=== PATIENT | female | born 1980 | race Caucasian/White ===

== ENCOUNTER 2016-12-05 07:10 | Inpatient (IN) | payer BC ==
--- NOTE | 2016-12-04 17:42 | HP ---
TOI GARLAND DATE OF SCHEDULED SURGERY: December 05, 2016 PREOPERATIVE DIAGNOSES: Menorrhagia with uterine fibroid. PROCEDURE PLANNED: A total abdominal hysterectomy. HISTORY: The patient is a 36-year-old 2, para 2, woman with a last menstrual period of November 17, 2016. She has had up to a year of very heavy periods with lots of pain and passing clots. She states this is worse for the first three days of her cycle, but she has a great deal of pain and she is unable to do much during those three days because of the heavy bleeding. During the workup we got an ultrasound which shows a 2.5 cm uterine fibroid in the posterior fundus. It looks intramural and may be submucosal as well. Otherwise normal ultrasound. Patient continues to have pain and the very heavy periods. She states her mother and sister both had a hysterectomy in their early 30s because of very similar bleeding. We have discussed putting a Mirena in, but she strongly wants a total abdominal hysterectomy. She wants to be done with the bleeding. PAST MEDICAL HISTORY: She denies major medical problems. PAST SURGICAL HISTORY: She has had a cholecystectomy. ALLERGIES: 1. PENICILLIN CAUSING A RASH. 2. SULFA CAUSING A RASH. MEDICATIONS: Advil as needed. FAMILY HISTORY: Positive for a father who had a myocardial infarction at age 39. SOCIAL HISTORY: Patient is Thai speaking. She lives with her and two children. She does not smoke, does not use alcohol. REVIEW OF SYSTEMS: Patient denies any fever, chills, nausea, vomiting, constipation or diarrhea. PHYSICAL EXAMINATION: GENERAL: She is a healthy-appearing woman. VITAL SIGNS: Blood pressure 130/84. HEENT: Normal. LUNGS: Clear. HEART: Normal S1 and S2. ABDOMEN: Soft, nontender, with no guarding or rebound. PELVIC: External genitalia and vagina are normal. The cervix reveals no motion tenderness. The uterus is anteverted, very tender, and about eight weeks size. Adnexa are nontender with no masses. LABS: test is negative. IMPRESSION: A patient with uterine fibroids and menorrhagia. She has a family history of heavy periods and hysterectomies. PLAN: Plan is to do a total abdominal hysterectomy.
[2016-12-05] MEDS ORDERED: LACTATED RINGERS 1,000 ML ONE ×2 (08:29→12:43)
[2016-12-05] MEDS ORDERED: IV START KIT ONE (08:30)
[2016-12-05] MEDS ORDERED: CEFAZOLIN SODIUM 2 GRAM PREMIX 100 ML IV ONE (08:34)
[2016-12-05] MEDS ORDERED: CEFAZOLIN SODIUM 2 GRAM PREMIX 100 ML IV PRN (09:00)
[2016-12-05] MEDS ORDERED: MIDAZOLAM HCL 1 MG/ML 2ML VIAL ONE (09:37)
[2016-12-05] MEDS ORDERED: FENTANYL 100 MCG/2 ML VIAL ONE ×5 (09:37→13:18)
[2016-12-05] MEDS ORDERED: MORPHINE SULFATE (DURAMORPH) 1 MG/ML 10ML AMP ONE (09:40)
[2016-12-05] MEDS ORDERED: SPINAL PROCEDURAL TRAY 1 EACH ONE (09:41)
[2016-12-05] MEDS ORDERED: LIDOCAINE 2% (PRES FREE) 5 ML VIAL ONE (10:25)
[2016-12-05] MEDS ORDERED: DEXAMETHASONE SOD PHOS 4 MG/1 ML VIAL ONE (10:25)
[2016-12-05] MEDS ORDERED: ONDANSETRON 4 MG/2ML 2 ML VIAL ONE (10:25)
[2016-12-05] MEDS ORDERED: PROPOFOL 40 ML IV ONE (10:25)
[2016-12-05] MEDS ORDERED: NALOXONE HCL 0.4 MG/ML VIAL IV PRN ×3 (10:40→16:24)
[2016-12-05] MEDS ORDERED: ONDANSETRON 4 MG/2ML 2 ML VIAL IV PRN ×4 (10:40→16:51)
[2016-12-05] MEDS ORDERED: PROMETHAZINE HCL 25 MG/ML VIAL IM PRN ×2 (10:40→14:02)
[2016-12-05] MEDS ORDERED: ATROPINE SULFATE 0.4 MG/1 ML VIAL IV PRN ×2 (10:40→14:02)
[2016-12-05] MEDS ORDERED: LACTATED RINGERS 1,000 ML IV SCH ×2 (10:45→14:15)
[2016-12-05] MEDS ORDERED: PROPOFOL 20 ML IV ONE ×3 (11:06→13:00)
[2016-12-05] MEDS ORDERED: KETOROLAC TROMETHAMINE 30 MG/ML 1 ML VIAL ONE (11:47)
[2016-12-05] MEDS ORDERED: HYDROMORPHONE HCL 1 MG/ML SYRINGE ONE ×2 (11:52→12:16)
[2016-12-05] MEDS: FENTANYL 100 MCG/2 ML VIAL IV PRN ×5 (11:53→15:02)
[2016-12-05] MEDS: HYDROMORPHONE HCL 1 MG/ML SYRINGE IV PRN ×8 (12:10→19:16)
[2016-12-05] MEDS ORDERED: DIPHENHYDRAMINE HCL 25 MG CAPSULE PO PRN ×2 (12:23→16:51)
[2016-12-05] MEDS ORDERED: DOCUSATE SODIUM 100 MG CAPSULE PO PRN ×2 (12:23→15:11)
[2016-12-05] MEDS ORDERED: BLISTEX LIPSTICK 1 EACH TP PRN ×2 (12:23→15:11)
[2016-12-05] MEDS ORDERED: D5LR 1,000 ML IV SCH (12:23)
[2016-12-05] MEDS ORDERED: MAG HYDROX/AL HYDROX/SIMETH 30 ML UDCUP PO PRN ×2 (12:23→15:11)
[2016-12-05] MEDS ORDERED: MAGNESIUM HYDROXIDE/AL HYDROX 30 ML UDCUP PO PRN ×2 (12:23→15:11)
[2016-12-05] MEDS ORDERED: MENTHOL/CETYLPYRD 1 EACH LOZENGE PO PRN ×2 (12:23→15:11)
[2016-12-05] MEDS ORDERED: SUCCINYLCHOLINE CHL 20 MG/ML DOSE ONE (13:00)
[2016-12-05] MEDS ORDERED: EPHEDRINE SULFATE UD SYR 25 MG 25 MG/5 ML SYRINGE IV ONE (13:21)
[2016-12-05] MEDS ORDERED: SURGICEL 3X4 1 EACH PACKET ONE (13:45)
[2016-12-05] MEDS ORDERED: MEPERIDINE 25 MG/ML SYRINGE IV PRN (14:02)
[2016-12-05] MEDS ORDERED: HYDRALAZINE HCL 20 MG/1 ML VIAL IV PRN (14:02)
[2016-12-05] MEDS ORDERED: LABETALOL HCL 5 MG/ML 20ML VIAL IV PRN (14:02)
--- NOTE | 2016-12-05 14:03 | OP ---
Suzanne Lim DATE: 12/05/2016 PREOPERATIVE DIAGNOSES: Uterine fibroids and menorrhagia. POSTOPERATIVE DIAGNOSIS: Uterine fibroids and menorrhagia. OPERATION PERFORMED: Total abdominal hysterectomy. SURGEON: Kit Amezquita M.D. PROCEDURE: The patient was taken to the operating room and spinal anesthesia was administered. She was placed in the supine position and physician prepped and draped in the usual sterile fashion. A pfannenstiel skin incision was made with a scalpel. A second scalpel was used to reach the fascia. The fascial incision was extended with Lorenzo scissors. The peritoneum was entered bluntly and extended. A self retaining retractor was inserted and the bowel was displaced with laparotomy packs. Both ovaries were normal. The right ovary had a ruptured corpus luteum cyst. The uterus was about 10 weeks size with a fundal fibroid. Both round ligaments were bilaterally clamped, cut, and ligated with 0 Vicryl and the anterior leaf of the broad ligament opened bilaterally and the bladder pushed downwards. An avascular window was created posteriorly for the broad ligament on the right side and the utero ovarian ligament clamped, cut, and doubly ligated with 0 Vicryl. An avascular window was created posteriorly for the broad ligament on the left side and the utero ovarian ligament doubly clamped, cut, and ligated with 0 Vicryl. The uterine vessels were then skeletonized and clamped, cut, and ligated with 0 Vicryl. Progressive bites of tissue were taken on each side of the cervix with each bite of tissue being clamped, cut, and ligated with 0 Vicryl. The vagina was entered with a scalpel to estimate the cervix and the cervix and uterus were removed from the body with scissors. Two angles of the vagina were closed by a modified Shah suture technique with 0 Vicryl. The cuff was then run with a running locking suture of 0 Vicryl. There was a persistent bleeding area on the left corner which was closed with a figure of eight suture of 0 Vicryl. Irrigation was performed and hemostasis was good. The pelvic floor was then repaired with a running suture of 2-0 Vicryl. Irrigation was again performed and hemostasis was good. All instruments and laparotomy pads were then removed. The anterior fascia was closed with two separate running sutures of 0 Vicryl and the skin was closed with sandra. The patient tolerated the procedure well and was taken to the recovery room in stable condition. All sponge, instrument, and needle counts were correct. Estimated blood loss 250 mL. JOB: [id number]
--- NOTE | 2016-12-05 14:44 | OP ---
Suzanne Lim DATE: 12/05/2016 PREOPERATIVE DIAGNOSIS: Postoperative bleeding. POSTOPERATIVE DIAGNOSIS: Bleeding at vaginal cuff. PROCEDURE PERFORMED: Exploratory laparotomy, cauterization and suturing of vaginal cuff. HISTORY: Patient had a total abdominal hysterectomy done this morning and about an hour later she was having vaginal bleeding in the recovery room. They estimated about 250 mL of blood that was bright red. At that point, I felt that there must be something at the cuff bleeding and we took her back to the operating room. The patient was put under general anesthesia and was prepped and draped in the usual sterile fashion. Her sandra were removed and the incision opened. The fascial incision was reopened. A self retaining retractor was inserted and the bowel was displaced with laparotomy packs. The pelvic floor peritonealization was opened. There was active bleeding at the left corner which was oozing in a pumping vessel, this was closed with several figure of eight sutures of 0 Vicryl. The right side was also oozing and this was resutured with 0 Vicryl. This effectively closed the cuff. The round ligament on the right side was oozing and this was resutured. The entire area looked raw, but by the end we had absolutely no bleeding. Surgicel was placed over this area. All instruments and laparotomy pads were removed. The fascia was closed with two separate running sutures of 0 Vicryl and the skin was closed with sandra. The patient tolerated the procedure well and was taken to recovery room in stable condition. All sponge, instrument, and needle counts were correct. Estimated blood loss 150 mL. JOB: [id number]
[2016-12-05] MEDS ORDERED: MORPHINE SULFATE 2 MG/ML SYRINGE IV PRN (16:24)
[2016-12-05] MEDS ORDERED: KETOROLAC TROMETHAMINE 30 MG/ML 1 ML VIAL IV PRN (16:24)
[2016-12-05] MEDS ORDERED: OXYCODONE/ACETAMINOPHEN 5/325 MG TABLET PO PRN (16:24)
[2016-12-05] MEDS ORDERED: EPHEDRINE SULFATE 50 MG/ML 1ML VIAL IV PRN (16:24)
[2016-12-05] MEDS ORDERED: ACETAMINOPHEN 325 MG TABLET PO PRN (16:30)
[2016-12-05] MEDS ORDERED: HYDROMORPHONE HCL 0.5 MG/0.5 ML SYRINGE ONE (16:40)
[2016-12-05] MEDS ORDERED: HYDROMORPHONE HCL 0.5 MG/0.5 ML SYRINGE IM PRN (16:45)
[2016-12-05 17:42] VITALS: BMI 35.9
[2016-12-05] MEDS ORDERED: OXYCODONE/ACETAMINOPHEN 5/325 MG TABLET ONE (19:18)
[2016-12-05] MEDS: OXYCODONE/ACETAMINOPHEN 5/325 MG TABLET PO PRN (23:11)
[2016-12-06] MEDS: OXYCODONE/ACETAMINOPHEN 5/325 MG TABLET PO PRN ×5 (02:57→23:26)
[2016-12-06 07:37] LABS: ABSOLUTE NEUTROPHIL COUNT 5.1 K/mm3 (1.8-7.7); BASO % 0.1 % (0.2-1.0); EOS % 0.5 % (0.9-2.9); HEMATOCRIT 28.9 % (37.0-47.0); HEMOGLOBIN 9.4 gm/l (12.0-16.0); IMM NEUT% 0.4 % (0-1); LYMPH # 2.5 (1.0-4.8); MEAN CELL VOLUME 88.9 fl (81.0-99.0); MEAN CORPUSCULAR HEMOGLOBIN 28.9 pg (27.0-31.0); MEAN CORPUSCULAR HGB CONC 32.5 g/dl (33.0-37.0); MEAN PLATELET VOLUME 10.8 fl (7.4-10.4); MONO # 0.8 (0.0-0.8); MONO % 9.8 % (4-12); NEUT % 60.2 % (43-75); PLATELET COUNT 258 K/mm3 (130-400); RED CELL DISTRIBUTION WIDTH 12.5 % (11.5-14.5)
--- NOTE | 2016-12-06 10:51 | PDOC43 ---
- Subjective Subjective: Reports Pain Tolerable, Reports Tolerating PO Clear - Objective Vital Signs Temperature 98.2 F 12/06/16 07:21 Pulse Rate 57 12/06/16 07:21 Respiratory Rate 17 12/06/16 07:50 Blood Pressure 108/56 12/06/16 07:21 O2 Saturation by Pulse Oximetry 98 12/06/16 07:21 Oxygen Delivery Method Nasal Cannula Oxygen Flow Rate 2 Laboratory 12/06/16 06:52 12/06/16 06:52 RBC 3.25 L MCHC 32.5 L Active Medication Orders Category Date Time Status Acetaminophen [Tylenol] Med 12/05/16 15:11 Active 325 - 650 mg PO Q4H PRN D5 Lactated Ringers @ 125 mls/hr (1000 ml) Med 12/06/16 10:50 Ordered D5lr 1,000 ml IV 125 mls/hr Diphenhydramine HCl [Benadryl] Med 12/05/16 16:51 Active 25 - 50 mg PO Q6H PRN Docusate Sodium [Colace] Med 12/05/16 15:11 Active 100 mg PO BID PRN Ephedrine Sulfate Med 12/05/16 16:24 Active 5 - 10 mg IV Q5M PRN Hydromorphone HCl [Dilaudid] Med 12/05/16 16:24 Active 0.5 - 2 mg IV Q1H PRN Ketorolac Tromethamine [Toradol] Med 12/06/16 10:48 Ordered 30 mg IV Q6H PRN Lip [place] [Blistex] Med 12/05/16 15:11 Active 1 each TP PRN PRN Magnesium Hydroxide/Al Hydrox [Maalox] Med 12/05/16 15:11 Active 30 ml PO Q4H PRN Magnesium/Al Hydrox/Simeth [Maalox Plus] Med 12/05/16 15:11 Active 30 ml PO Q4H PRN Menthol/Cetylpyridinium [Cepacol] Med 12/05/16 15:11 Active 1 each PO PRN PRN Morphine Sulfate Med 12/05/16 16:24 Active 1 - 5 mg IV Q1H PRN Naloxone HCl [Narcan] Med 12/05/16 16:24 Active 0.04 - 0.4 mg IV Q5M PRN Ondansetron 4 mg/2ml Vial [Zofran] Med 12/05/16 16:51 Active 4 mg IV Q6H PRN Oxycodone HCl/Acetaminophen [Percocet 5/325] Med 12/05/16 20:45 Active 1 - 2 tab PO Q4H PRN Sodium Chloride 0.9% Flush [Normal Saline 10ml Flush] Med 12/05/16 15:11 Active 10 - 50 ml IV PRN PRN Sodium Chloride 0.9% Flush [Normal Saline 10ml Flush] Med 12/05/16 17:00 Active 10 ml IV Q8HR Intake and Output 12/04/16 12/05/16 12/06/16 23:59 23:59 23:59 Intake Total 3900 300 Output Total 1075 900 Balance 2825 -600 General: Afebrile Abdomen: Soft Wound DIVERSITY INTERN: Dressing Clean/Dry/Intact Genitourinary: Normal Female Genitalia Psych/Mental Status: Normal Affect - Disposition: Disposition: Stable (see orders)
[2016-12-06] MEDS ORDERED: PUMP TUBING ONE (10:53)
[2016-12-06] MEDS: KETOROLAC TROMETHAMINE 30 MG/ML 1 ML VIAL IV PRN ×2 (10:58→17:17)
[2016-12-06] MEDS: HYDROMORPHONE HCL 1 MG/ML SYRINGE IV PRN ×4 (10:58→23:02)
[2016-12-06] MEDS: D5LR 1,000 ML IV SCH ×2 (10:59→19:16)
[2016-12-06] MEDS ORDERED: OXYCODONE/ACETAMINOPHEN 5/325 MG TABLET PO PRN ×2 (11:37→16:25)
[2016-12-06] MEDS ORDERED: MORPHINE SULFATE 2 MG/ML SYRINGE IV PRN (11:37)
[2016-12-06] MEDS ORDERED: HYDROMORPHONE HCL 1 MG/ML SYRINGE ONE (17:43)
[2016-12-06] MEDS ORDERED: HYDROMORPHONE HCL 0.5 MG/0.5 ML SYRINGE IV PRN (17:49)
[2016-12-07] MEDS: KETOROLAC TROMETHAMINE 30 MG/ML 1 ML VIAL IV PRN ×2 (00:01→07:25)
[2016-12-07] MEDS: HYDROMORPHONE HCL 1 MG/ML SYRINGE IV PRN ×2 (00:39→07:25)
[2016-12-07] MEDS: D5LR 1,000 ML IV SCH (03:51)
[2016-12-07] MEDS: OXYCODONE/ACETAMINOPHEN 5/325 MG TABLET PO PRN ×2 (03:51→09:42)
[2016-12-07] MEDS ORDERED: HYDROMORPHONE HCL 2 MG/ML SYRINGE ONE (07:19)
--- NOTE | 2016-12-07 10:04 | PDOC43 ---
- Subjective Subjective: Reports Pain Tolerable, Reports Tolerating PO Clear - Objective Vital Signs Temperature 98.6 F 12/07/16 08:00 Pulse Rate 80 12/07/16 08:00 Respiratory Rate 16 12/07/16 08:00 Blood Pressure 121/72 12/07/16 08:00 O2 Saturation by Pulse Oximetry 99 12/07/16 08:00 Oxygen Delivery Method Room Air Oxygen Flow Rate 0 Laboratory 12/06/16 06:52 Active Medication Orders Category Date Time Status Acetaminophen [Tylenol] Med 12/05/16 15:11 Active 325 - 650 mg PO Q4H PRN D5lr 1,000 ml Med 12/06/16 10:50 Active IV 125 mls/hr Diphenhydramine HCl [Benadryl] Med 12/05/16 16:51 Active 25 - 50 mg PO Q6H PRN Docusate Sodium [Colace] Med 12/05/16 15:11 Active 100 mg PO BID PRN FERROUS SULFATE (65 Fe) [Ferrous Sulfate] Med 12/07/16 10:15 Active 325 mg PO BID Hydromorphone HCl [Dilaudid] Med 12/06/16 17:44 Active 0.5 - 1 mg IV Q1H PRN Hydromorphone HCl [Dilaudid] Med 12/06/16 17:49 Active 0.5 - 1 mg IV Q1H PRN Ketorolac Tromethamine [Toradol] Med 12/06/16 10:48 Active 30 mg IV Q6H PRN Lip [place] [Blistex] Med 12/05/16 15:11 Active 1 each TP PRN PRN Magnesium Hydroxide/Al Hydrox [Maalox] Med 12/05/16 15:11 Active 30 ml PO Q4H PRN Magnesium/Al Hydrox/Simeth [Maalox Plus] Med 12/05/16 15:11 Active 30 ml PO Q4H PRN Menthol/Cetylpyridinium [Cepacol] Med 12/05/16 15:11 Active 1 each PO PRN PRN Ondansetron 4 mg/2ml Vial [Zofran] Med 12/05/16 16:51 Active 4 mg IV Q6H PRN Oxycodone HCl [Roxicodone] Med 12/07/16 10:01 Ordered 5 - 10 mg PO Q3H PRN Oxycodone HCl/Acetaminophen [Percocet 5/325] Med 12/05/16 20:45 Active 1 - 2 tab PO Q4H PRN Sodium Chloride 0.9% Flush [Normal Saline 10ml Flush] Med 12/05/16 15:11 Active 10 - 50 ml IV PRN PRN Sodium Chloride 0.9% Flush [Normal Saline 10ml Flush] Med 12/05/16 17:00 Active 10 ml IV Q8HR Intake and Output 12/05/16 12/06/16 12/07/16 23:59 23:59 23:59 Intake Total 3900 1255 4096 Output Total 1075 1600 1400 Balance 8169 -222 5783 General: Afebrile Abdomen: Soft Wound MERCHANDISE DISPLAYER: Babs Intact Genitourinary: Normal Female Genitalia Psych/Mental Status: Normal Affect - Disposition: Disposition: Anticipate Home Tomorrow (reg diet, saline lock, pain meds Q3-4 hr prn)
[2016-12-07] MEDS: FERROUS SULFATE (65 Fe) 325 MG TABLET PO SCH ×2 (10:54→20:39)
[2016-12-07] MEDS: OXYCODONE HCL 5 MG TABLET PO PRN ×4 (13:11→23:40)
--- NOTE | 2016-12-07 14:10 | SURGPATH ---
[facility] [address] [place] [id number] Patient Name: TOI GARLAND MR#: [id number] : 1980 Gender: F Specimen #: [id number] Collected: 12/05/2016 Received: 12/06/2016 Reported: 12/07/2016 Submitting Phys: SOSA ORTEGA Copy To Phys: KARLI HARTLEY [facility] Clinical History / Pre-Operative Diagnosis: MENORRHAGIA; UTERINE FIBROIDS Specimen Source / Surgical Procedure Performed: UTERUS AND CERVIX Interpretation: UTERUS AND CERVIX, HYSTERECTOMY: - TWO LEIOMYOMAS - CERVIX WITH NO DIAGNOSTIC ABNORMALITY - BENIGN SECRETORY ENDOMETRIUM Electronically Signed Out Sade Barnes M.D. Gross Description: The specimen is received in a formalin filled container labeled with the patient's name and "uterus and cervix". A 180 g intact uterus and cervix is 9.5 x 6.5 x 5.5 cm. The serosa is smooth and lindsay. The focally ecchymotic pink-lindsay ectocervix has areas of granularity surrounding a patent os. The endocervical canal is also patent. The endometrium is flat, red-lindsay and averages 0.5 cm. The dense lindsay myometrium is thickened to 2.5 cm and contains two anterior, bulging, well circumscribed, whorled, white-gandara and pink-lindsay intramural nodules, 0.6 and 1.5 cm. Summary of sections: A-serosa B-anterior and posterior cervix C and D-anterior endomyometrium E and F-posterior endomyometrium G-two myometrial nodules Dov Espinal Microscopic Description: Sections from the serosal surface are unremarkable. The cervix is free of dysplasia. There is secretory endometrium with serpiginous glands showing subnuclear vacuolization. No plasma cells are seen within the stroma and there is no hyperplasia or neoplasia. Two small nodules composed of bland smooth muscle are present within the myometrium. 1: [id number] D25.1
[2016-12-07] MEDS: ACETAMINOPHEN 325 MG TABLET PO PRN ×3 (14:45→23:40)
[2016-12-07] MEDS: IBUPROFEN 800 MG TABLET PO PRN ×2 (17:32→23:40)
[2016-12-08] MEDS: ACETAMINOPHEN 325 MG TABLET PO PRN (03:00)
[2016-12-08] MEDS: OXYCODONE HCL 5 MG TABLET PO PRN ×3 (03:00→12:54)
[2016-12-08] MEDS: IBUPROFEN 800 MG TABLET PO PRN ×2 (05:34→12:54)
[2016-12-08] MEDS: FERROUS SULFATE (65 Fe) 325 MG TABLET PO SCH (09:03)
[2016-12-08 11:41] VITALS: BP 137/83
--- NOTE | 2016-12-08 13:00 | DS ---
TOI GARLAND DATE OF ADMISSION: December 05, 2016 DATE OF DISCHARGE: December 08, 2016 ADMITTING DIAGNOSES: Menorrhagia with uterine fibroid. PROCEDURE PERFORMED IN THE HOSPITAL: 1. A total abdominal hysterectomy. 2. Reopening of her abdomen to stop bleeding. HISTORY OF PRESENT ILLNESS: The patient is a 36-year-old 2, para 2, woman with a last menstrual period of November 17, 2016. She has had up to a year of heavy periods with lots of pain and passing clots. The pain is worse the first three days of her cycle and she has a great deal of pain and is unable to do much of anything for those days. During the workup, we had an ultrasound which showed a 2.5 cm fibroid in the uterine fundus. Patient has a strong family history of her mother and sisters having hysterectomies in their early 30s for similar bleeding problems. Patient was admitted and taken to the operating room where she underwent a total abdominal hysterectomy which went well. However, in the recovery room she had persistent vaginal bleeding. After about 45 minutes she had lost about 200 mL of blood, and she was still having fairly bright red bleeding. At that point, a decision was made to take her back to the operating room. She went back and was reopened and it was found that there was active oozing all around the vaginal cuff and one pumping vessel at the left corner of the vaginal cuff. All the sutures were intact but there was just a lot of oozing. All of this area was re-sutured and cauterized. Surgicel was placed and patient was dry when we left the operating room. Postoperatively she did well. She remained afebrile, ambulating without difficulty and tolerating her diet. On the third postoperative day her sandra were removed, SteriStrips were placed, and she was discharged home. She was given a prescription for Percocet, Colace and iron. She will return to see me in two weeks.
== END 2016-12-08 13:00 | disposition home or self-care (01) | DRG 743 ==
LOC: OR 08:16 → MS 15:25
PROVIDERS: ADMIT Obstetrics & Gynecology; ATTEND Obstetrics & Gynecology
PROC: 0UT90ZZ Resection of Uterus, Open Approach (ICD-10-PCS; principal; 2016-12-05)
PROC: 0UTC0ZZ Resection of Cervix, Open Approach (ICD-10-PCS; 2016-12-05)
PROC: 0W3F0ZZ Control Bleeding in Abdominal Wall, Open Approach (ICD-10-PCS; 2016-12-05)
DX: N92.0 Excessive and frequent menstruation with regular cycle (principal); D25.0 Submucous leiomyoma of uterus